=== PATIENT | male | born 1945 | race Hispanic/Latino ===

== ENCOUNTER 2017-12-10 14:10 | Outpatient (CLI) | payer MEDICARE ==
--- NOTE | 2017-12-11 00:11 | XRay Report ---
FINAL REPORT PROCEDURE: XR HIP 2-3V LT TECHNIQUE: LEFT hip radiographs, 2 views each, including AP view of the pelvis. HISTORY: Left hip pain COMPARISON: No prior studies are available for comparison. FINDINGS: Fracture (s) and/or Dislocation(s): None . Joint space(s): Mild narrowing of the joint spaces Soft tissues: Normal. Bone mineralization: Normal. Foreign bodies: None. IMPRESSION: No acute fracture or dislocation. Mild arthritis
--- NOTE | 2017-12-11 00:12 | XRay Report ---
FINAL REPORT PROCEDURE: XR SPINE LUMBOSACRAL 2-3V TECHNIQUE: Lumbar spine radiographs, including AP, lateral, and lumbosacral spot views. CPT 69881 HISTORY: BACK pain COMPARISON: No prior studies are available for comparison. FINDINGS: Alignment: There is a significant right convex thoracolumbar curvature. Slight left convex lower lumbar curvature.. Vertebral body heights/Disk spaces: The heights of the vertebral bodies are maintained. There is loss of disc space height at the L1-2, and L4-5 levels. Mild spur formation off the vertebral bodies is identified at all levels.. Fracture(s): None. Facets: Normal. Bone mineralization: Mild generalized osteopenia. IMPRESSION: Lumbar scoliosis as discussed. No acute fracture or dislocation. Mild lumbar spondylosis and degenerative disc changes..
== END 2017-12-10 14:11 | disposition home or self-care (01) ==
LOC: XRAY 14:10
PROVIDERS: ATTEND Physical Medicine & Rehabilitation
DX: M47.896 Other spondylosis, lumbar region (principal); M16.12 Unilateral primary osteoarthritis, left hip; M41.86 Other forms of scoliosis, lumbar region; M43.8X5 Other specified deforming dorsopathies, thoracolumbar region; M85.88 Other specified disorders of bone density and structure, other site
CPT/HCPCS: 72100